=== PATIENT | female | born 1985 | race Two or more races ===

== ENCOUNTER 2019-04-21 11:28 | Emergency (ER) | payer BC, OTHER ==
--- NOTE | 2019-04-21 11:56 | EDM.PDOC ---
ED HPI GENERAL MEDICAL PROBLEM - General Chief Complaint: Respiratory Problem Stated Complaint: FLU Time Seen by Provider: 04/21/19 11:55 Source of Information: Reports: Patient History Limitations: Reports: No Limitations, Language Barrier, Other (Patient' s is interpreting.) - History of Present Illness INITIAL COMMENTS - FREE TEXT/NARRATIVE: Patient is a 33-year-old female who is complaining of having a severe productive cough for the past 2 days. She is also complaining of sore throat and having pleuritic chest pain with coughing. She denies any vomiting or diarrhea. Patient was unable to sleep last night secondary to respiratory symptoms. She is complaining of dyspnea with exertion. She is not a cigarette smoker. She has never had pneumonia or bronchitis before. She denies any headache or body aches. There is been no vomiting or diarrhea. Patient has no dysuria or hematuria. Duration: Day(s): (two), Getting Worse Location: Reports: Neck, Chest Quality: Reports: Ache Severity: Moderate Improves with: Reports: None Worsens with: Reports: Breathing Associated Symptoms: Reports: Chest Pain, cough w sputum, Shortness of Breath. Denies: Diaphoresis, Nausea/Vomiting Throat Pain Score (Numeric/FACES): 10 - Related Data Allergies Allergy/AdvReac Type Severity Reaction Status Date / Time No Known Allergies Allergy Verified 04/21/19 12:02 Home Meds: Home Meds Acetaminophen [Tylenol] 325 mg PO Q4H 06/05/14 [History] Past Medical History - Past Health History Medical/Surgical History: Denies Medical/Surgical History ED ROS GENERAL - Review of Systems Review Of Systems: Comprehensive ROS is negative, except as noted in HPI. ED EXAM, GENERAL - Physical Exam Exam: See Below Free Text/Narrative:: Exam: See Below Exam Limited By: No Limitations Head: Atraumatic Neck: Normal Inspection. No: Carotid Bruit, Lymphadenopathy (R)(L). Respiratory/Chest: No Respiratory Distress, Lungs Clear, Normal Breath Sounds, No Accessory Muscle Use. Wheezing or consolidation. She has good air movement. Cardiovascular: Normal Peripheral Pulses, Regular Rate, Rhythm, No Edema, No JVD GI/Abdominal: Normal Bowel Sounds, soft nontender. Back Exam: Normal Inspection. No: CVA Tenderness (R) Extremities: Normal Inspection. No: No Pedal Edema Neurological: Alert, Oriented, Normal Cognition Psychiatric: Normal Affect Skin Exam: Warm Lymphatic: No Adenopathy General Appearance: Alert, Other (Patient appears uncomfortable.) Throat/Mouth: Normal Oropharynx. No: Inflammation Head: Atraumatic Neck: Normal Inspection, Supple Respiratory/Chest: No Respiratory Distress, Lungs Clear, Normal Breath Sounds. No: Respiratory Distress, Decreased Breath Sounds, Rhonchi, Wheezing Cardiovascular: Regular Rate, Rhythm, No JVD GI/Abdominal: Normal Bowel Sounds, Soft, Non-Tender Extremities: Normal Inspection Neurological: Alert Psychiatric: Normal Affect Skin Exam: Warm, Dry, Intact Lymphatic: No Adenopathy Course - Vital Signs Text/Narrative:: Patient feels mildly better with breathing treatment. Her influenza was positive. I am going to start her on a Z-Gerry for her productive cough. I will give her some Robitussin-AC. I am not starting her on Tamiflu since this is her third day of feeling feverish. I will give her albuterol inhaler with spacer. She is to return to emergency department if worse. Liquid ibuprofen as needed. Increase fluids and rest. Last Recorded V/S: Last Vital Signs Temp 37.7 C 04/21/19 11:57 Pulse 122 H 04/21/19 11:57 Resp 20 04/21/19 11:57 BP 132/93 H 04/21/19 11:57 Pulse Ox 99 04/21/19 11:57 - Orders/Labs/Meds Orders: Active Orders 24 hr Category Date Time Status RT Aerosol Therapy [RC] ASDIRECTED Care 04/21/19 12:08 Active CULTURE STREP A CONFIRMATION [] Stat Lab 04/21/19 12:36 Results STREP SCRN A RAPID W CULT CONF [] Stat Lab 04/21/19 12:36 Results Meds: Medications Discontinued Medications Generic Name Dose Route Start Last Admin Trade Name Freq PRN Reason Stop Dose Admin Albuterol/Ipratropium 3 ml 04/21/19 12:07 04/21/19 12:27 Duoneb 3.0-0.5 Mg/3 Ml NEB 04/21/19 12:08 3 ml ONETIME ONE Administration Prednisone 20 mg 04/21/19 12:07 04/21/19 12:38 Prednisone PO 04/21/19 12:08 20 mg ONETIME ONE Administration Departure - Departure Time of Disposition: 13:39 Disposition: Home, Self-Care 01 Condition: Good Clinical Impression: Influenza B, Acute bronchitis - Discharge Information Instructions: Influenza, Adult, [id number], Cough, Adult, [id number] Referrals: PCP,None [Primary Care Provider] - Forms: ED Department Discharge Additional Instructions: Medicines as prescribed. Return to ER if worse. Follow-up with PCP if symptoms continue. Ibuprofen liquid as needed. Care Plan Goals: The following information is given to patients seen in the emergency department who are being discharged to home. This information is to outline your options for follow-up care. We provide all patients seen in our emergency department with a follow-up referral. The need for follow-up, as well as the timing and circumstances, are variable depending upon the specifics of your emergency department visit. If you don't have a primary care physician on staff, we will provide you with a referral. We always advise you to contact your personal physician following an emergency department visit to inform them of the circumstance of the visit and for follow-up with them and/or the need for any referrals to a consulting specialist. The emergency department will also refer you to a specialist when appropriate. This referral assures that you have the opportunity for follow-up care with a specialist. All of these measure are taken in an effort to provide you with optimal care, which includes your follow-up. Under all circumstances we always encourage you to contact your private physician who remains a resource for coordinating your care. When calling for follow-up care, please make the office aware that this follow-up is from your recent emergency room visit. If for any reason you are refused follow-up, please contact the [facility] Emergency Department at and asked to speak to the emergency department charge nurse. Sepsis Event Note - Focused Exam Vital Signs: Vital Signs Temp Pulse Resp BP Pulse Ox 04/21/19 11:57 37.7 C 122 H 20 132/93 H 99 Date Exam was Performed: 04/21/19 Time Exam was Performed: 13:31 - My Orders Last 24 Hours: My Active Orders 04/21/19 12:08 RT Aerosol Therapy [RC] ASDIRECTED 04/21/19 12:36 CULTURE STREP A CONFIRMATION [RM] Stat STREP SCRN A RAPID W CULT CONF [RM] Stat - Assessment/Plan Last 24 Hours: My Active Orders 04/21/19 12:08 RT Aerosol Therapy [RC] ASDIRECTED 04/21/19 12:36 CULTURE STREP A CONFIRMATION [RM] Stat STREP SCRN A RAPID W CULT CONF [RM] Stat
[2019-04-21] MEDS ORDERED: Albuterol/Ipratropium 3.0-0.5 MG/3 ML Neb Soln NEB ONE (12:07)
[2019-04-21] MEDS ORDERED: predniSONE 20 MG Tab PO ONE (12:07)
[2019-04-21 14:06] VITALS: BP 159/99; PULSE 102
== END 2019-04-21 14:08 | disposition home or self-care (01) ==
LOC: MW.ED 11:28
DX: J10.1 Influenza due to other identified influenza virus with other respiratory manifestations (principal)
CPT/HCPCS: 87081; 87804; 87880; 94640; 99285; A9270; J7620-GY